=== PATIENT | male | born 1950 | race Caucasian/White ===

== ENCOUNTER 2016-07-06 08:46 | Emergency (ER) | payer MEDICARE, BC ==
[2016-07-06 09:15] VITALS: BP 143/72
--- NOTE | 2016-07-06 09:42 | UC ---
Respiratory Complaint HPI - HPI Summary HPI Summary: 66 yo male with a 3 week history of sinus pressure/pain/post nasal drip and non productive cough no relief with allergy meds no f/c no n/v/d - History of Current Complaint Chief Complaint: UCRespiratory Stated Complaint: COUGH,CONGESTION Time Seen by Provider: 07/06/16 09:31 Hx Obtained From: Patient Onset/Duration: Sudden Onset, Gradual Onset Timing: Constant Severity Initially: Mild Severity Currently: Moderate Pain Intensity: 4 Pain Scale Used: 0-10 Numeric Character: Cough: Nonproductive Associated Signs And Symptoms: Positive: Nasal Congestion, Sinus Discomfort Related History: Seasonal Allergies - Allergies/Home Medications Allergies/Adverse Reactions: Allergies Allergy/AdvReac Type Severity Reaction Status Date / Time No Known Allergies Allergy Verified 07/06/16 08:57 Home Medications: Home Medications [id number] [Vicks Nyquil Cold & Flu N 15-6.25-325 mg] 2 cap PO Q6H PRN 07/06/16 [History Confirmed 07/06/16] Diphenhydramine HCl 25 - 50 mg PO Q6H PRN 07/06/16 [History Confirmed 07/06/16] Finasteride (ALOPECIA) (NF) [Propecia (NF)] 1 mg PO DAILY 07/06/16 [History Confirmed 07/06/16] [id number] W/ APAP [Mucinex Fast-Max Severe C 0-87-516-325 mg] 2 tab PO Q4H PRN 07/06/16 [History Confirmed 07/06/16] PMH/Surg Hx/FS Hx/Imm Hx Previously Healthy: Yes Respiratory History Of: Reports: Pneumonia - x3 - Surgical History Surgical History: None - Family History Known Family History: Positive: Other - allergies run in the family Negative: Respiratory Disease - Social History Alcohol Use: Weekly Substance Use Type: None Smoking Status (MU): Never Smoked Tobacco - Immunization History Most Recent Influenza Vaccination: Not the 2015/2016 Season Most Recent Pneumonia Vaccination: 2016 Review of Systems Constitutional: Negative Skin: Negative Eyes: Negative ENT: Nasal Discharge Respiratory: Cough Cardiovascular: Negative Gastrointestinal: Negative Genitourinary: Negative Motor: Negative Neurovascular: Negative Musculoskeletal: Negative Neurological: Negative Psychological: Negative All Other Systems Reviewed And Are Negative: Yes Physical Exam Triage Information Reviewed: Yes Appearance: Well-Appearing, No Pain Distress, Well-Nourished Vital Signs: Initial Vital Signs Temp 98 F 07/06/16 08:51 Pulse 58 07/06/16 08:51 Resp 16 07/06/16 08:51 BP 143/72 07/06/16 08:51 Pulse Ox 100 07/06/16 08:51 Vital Signs Reviewed: Yes Eyes: Positive: Conjunctiva Clear ENT: Positive: Hearing grossly normal, Pharyngeal erythema, Nasal congestion, Nasal drainage, TMs normal, Other: - mild bilat max sinus tenderness. Negative : Trismus, Muffled/hoarse voice Dental: Negative: Dental Fracture @, Abscess @ Neck: Positive: Supple, Nontender, No Lymphadenopathy Respiratory: Positive: Lungs clear, Normal breath sounds, No respiratory distress, No accessory muscle use Cardiovascular: Positive: RRR, No Murmur. Negative: Tachycardia, Bradycardia Musculoskeletal: Positive: ROM Intact, No Edema Neurological: Positive: Alert Psychological Exam: Normal Skin Exam: Normal UC Diagnostic Evaluation - Laboratory O2 Sat by Pulse Oximetry: 100 - normal/not hypoxic Respiratory Course/Dx - Differential Dx/Diagnosis Provider Diagnoses: acute sinsusitis Discharge - Discharge Plan Condition: Stable Disposition: HOME Prescriptions: Cefuroxime Axetil [Ceftin 250 MG] 250 mg PO BID #20 tab Patient Education Materials: Sinusitis (ED) Referrals: SAMIA Garnica [Primary Care Provider] - 5 Days (if not better) Additional Instructions: saline nasal spray twice daily
== END 2016-07-06 09:49 | disposition home or self-care (01) ==
LOC: UCCORT 08:46
DX: J01.90 Acute sinusitis, unspecified (principal)
CPT/HCPCS: 99212; G0463

== ENCOUNTER 2017-03-20 17:09 | Emergency (ER) | payer MEDICARE, BC ==
[2017-03-20] MEDS ORDERED: Ondansetron ODT TAB* 4 MG PO ONE (19:37)
--- NOTE | 2017-03-20 19:43 | UC ---
Abdominal Pain Male HPI - HPI Summary HPI Summary: Mr. Barajas is a healthy 67 yo male presents to urgent care with his . Pt states at 11am was leaving to play tennis and felt "stomach ache" and nausea. Pt states took 2 tums. Pt was able to play full games x 2 hours. Pt states drank plenty of water during the game. Pt states after then game and while driving home started to have increased abdominal pain and bloating. Pt states had to loosen his pants and hold seatbelt second to discomfort. Pt states when he got home he had dry heaves and vomiting x 4. Pt states since this time continues to feel nauseous and has decreased appetite. Pt reports continues to have a belly ache but does not localized. Pt denies fever, chills, rash. Pt denies cp, sob. Pt denies sylvester, vision changes. No sick contact. Pt has never have stomach bug or similar sx. Pt denies back pain. No dysuria, hematuria. Pt states usually has 1 BM per day. Today has had 5 - progressively soft - no diarrhea. No blood, no black. - History of Current Complaint Chief Complaint: UCAbdominalPain Stated Complaint: stomach ache Time Seen by Provider: 03/20/17 18:59 Hx Obtained From: Patient, Family/Consumer Insight Analyst Onset/Duration: Gradual Onset Timing: Constant Pain Intensity: 5 Location: Diffuse Radiates: No Character: Aching Associated Signs And Symptoms: Positive: Decreased Appetite, Nausea, Vomiting. Negative: Cough, Chest Pain, Constipation, Blood in Stool, Urinary Symptoms, Diarrhea - Allergies/Home Medications Allergies/Adverse Reactions: Allergies Allergy/AdvReac Type Severity Reaction Status Date / Time No Known Allergies Allergy Verified 03/20/17 18:30 PMH/Surg Hx/FS Hx/Imm Hx Previously Healthy: Yes - Surgical History Surgical History: None - Family History Known Family History: Positive: Other - allergies run in the family Negative: Respiratory Disease - Social History Occupation: Retired Lives: With Family Alcohol Use: Weekly Substance Use Type: None Smoking Status (MU): Never Smoked Tobacco - Immunization History Most Recent Influenza Vaccination: Not the 2016/2016 Season Most Recent Pneumonia Vaccination: 2016 Review of Systems Constitutional: Fatigue, Other - decreased appetite Eyes: Blurred Vision ENT: Negative Respiratory: Negative Cardiovascular: Negative Gastrointestinal: Abdominal Pain, Vomiting, Nausea Genitourinary: Negative Motor: Negative Neurovascular: Negative Musculoskeletal: Negative Neurological: Negative Is Patient Immunocompromised?: Yes All Other Systems Reviewed And Are Negative: Yes Physical Exam Triage Information Reviewed: Yes Appearance: Other: - pallor, tired appearing Vital Signs: Initial Vital Signs Temp 98.9 F 03/20/17 18:24 Pulse 56 03/20/17 18:24 Resp 16 03/20/17 18:24 BP 163/90 03/20/17 18:24 Pulse Ox 100 03/20/17 18:24 Vital Signs Reviewed: Yes Eye Exam: Normal Eyes: Positive: Conjunctiva Clear ENT: Positive: Normal ENT inspection, Hearing grossly normal, Other: - mmpasty Dental Exam: Normal Neck exam: Normal Neck: Positive: Supple, Nontender, No Lymphadenopathy Respiratory Exam: Normal Respiratory: Positive: Chest non-tender, Lungs clear, Normal breath sounds, No respiratory distress, No accessory muscle use Cardiovascular Exam: Normal Cardiovascular: Positive: RRR, No Murmur, Pulses Normal Abdomen Description: Positive: Other: - soft, decreased BS diffuse discomfort no guarding, no rebound Bowel Sounds: Positive: Hypoactive Musculoskeletal Exam: Normal Neurological Exam: Normal Psychological Exam: Normal Skin Exam: Normal Abd Pain Male Course/Dx - Course Course Of Treatment: Pt presents with diffuse abdominal discomfort, nausea and vomiting since 11am today. Pt vomited multiple times at home and again in UC. Pt without fever, chills. no sick contact. urine with + glucose, no ketones. FSBG 155. Pt given zofran. Pt continues to have nausea. d/w pt and spouse - differential including appendicitis, gastroenteritis, colitis. d/w pt going home with Rx zofran vs ed eval for fever, increased pain. after discussion -pt and elected to go to ED - request Randal fonseca. gave report to Coretta Reeves NP ED - Differential Dx/Clinical Impression Provider Diagnoses: abdominal pain Discharge - Discharge Plan Condition: Stable Disposition: OTHER Discharge Disposition Comment: abdominal pain Patient Education Materials: Acute Abdominal Pain (ED) Referrals: SAMIA Garnica [Primary Care Provider] - Additional Instructions: The doctor that evaluated you today recommend you go to the emergency department for futher evaluation of your pain - this evaluation may include lab work and imaging, but will be dependent upon the provider that evaluates you. Go directly to the emergency department - call 911 if you have any questions or concerns
[2017-03-20 19:45] VITALS: BP 153/91
== END 2017-03-20 20:14 ==
LOC: UCCORT 17:09
DX: R10.9 Unspecified abdominal pain (principal)
CPT/HCPCS: 81003; 99212; A9270-GY; G0463

== ENCOUNTER 2018-11-21 07:49 | Emergency (ER) | payer MEDICARE, BC ==
[2018-11-21 08:12] VITALS: BP 117/76
--- NOTE | 2018-11-21 09:16 | UC ---
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 BELIEVES IT ATTACHED YESTERDAY MORNING WHILE HE WAS WEEDING IN THE YARD. STATES HE WAS ALSO WEEDING THE DAY BEFORE SO IT IS POSSIBLE IT ATTACHED AT THAT TIME. IS UNSURE OF LEVEL OF ENGORGEMENT HE DID NOT SEE THE TICK WHEN HIS REMOVED IT. - History of Current Complaint Chief Complaint: UCBiteInjury Time Seen by Provider: 11/21/18 08:29 Stated Complaint: TICK BITE Hx Obtained From: Patient Onset/Duration: Lasting Hours Skin Exposure Onset/Duration: Hours Ago Timing: Constant Onset Severity: Mild Current Severity: Mild Pain Intensity: 0 Pain Scale Used: 0-10 Numeric Character: Redness Aggravating Factor(s): Nothing Alleviating Factor(s): Nothing Associated Signs & Symptoms: Positive: Negative Related History: Insect Bite/Sting - Allergy/Home Medications Allergies/Adverse Reactions: Allergies Allergy/AdvReac Type Severity Reaction Status Date / Time No Known Allergies Allergy Verified 11/21/18 08:12 PMH/Surg Hx/FS Hx/Imm Hx Previously Healthy: Yes - Surgical History Surgical History: None - Family History Known Family History: Positive: Other - allergies run in the family Negative: Respiratory Disease - Social History Alcohol Use: Daily Substance Use Type: None Smoking Status (MU): Never Smoked Tobacco - Immunization History Most Recent Influenza Vaccination: Not the 2015/2016 Season Most Recent Pneumonia Vaccination: 2015 Review of Systems All Other Systems Reviewed And Are Negative: Yes Constitutional: Positive: Negative Skin: Positive: Other - TICK ATTACHMENT SITE LEFT LOW BACK Respiratory: Positive: Negative Cardiovascular: Positive: Negative Gastrointestinal: Positive: Negative Physical Exam Triage Information Reviewed: Yes Appearance: Well-Appearing, No Pain Distress, Well-Nourished Vital Signs: Initial Vital Signs Temp 97.5 F 11/21/18 08:07 Pulse 56 11/21/18 08:07 Resp 16 11/21/18 08:07 BP 117/76 11/21/18 08:07 Pulse Ox 100 11/21/18 08:07 Vital Signs Reviewed: Yes Eyes: Positive: Conjunctiva Clear ENT: Positive: Hearing grossly normal Neck: Positive: Supple Respiratory: Positive: No respiratory distress, No accessory muscle use Cardiovascular: Positive: Pulses Normal Abdomen Description: Positive: Soft Musculoskeletal: Positive: No Edema Neurological: Positive: Alert Psychological: Positive: Age Appropriate Behavior Skin: Positive: Other - TICK ATTACHMENT SITE LEFT LOWE BACK. PINPOINT SIZED RETAINED TICK PART WITH 5MM SURROUNDING ERYTHEMA, NOT TENDER. Course/Dx - Diagnoses Provider Diagnosis: Tick bite of lower back Discharge - Sign-Out/Discharge Documenting (check all that apply): Patient Departure All imaging exams completed and their final reports reviewed: No Studies - Discharge Plan Condition: Stable Disposition: HOME Prescriptions: Doxycycline Monohydrate 2 cap PO ONCE #2 cap Patient Education Materials: Tick Bite (ED) Referrals: Anna Arzola [Primary Care Provider] - If Needed Additional Instructions: You received a prescription for 200mg of doxycycline for prophylaxis against Lyme disease. The Infectious Disease Society of [place] (IDSA) does not generally recommend antimicrobial prophylaxis for prevention of Lyme disease after a recognized tick bite. However, in areas that are highly endemic for Lyme disease, a single dose of doxycycline may be offered to adult patients (200 mg) who are not and to children older than 8 years of age (4 mg/kg up to a maximum dose of 200 mg) when all of the following circumstances exist: CRITERIA FOR RECEIVING PROPHYLACTIC TREATMENT FOR LYME DISEASE 1) TICK ATTACHED FOR AT LEAST 36 HRS 2) TICK IS AN ADULT OR [place] DEER TICK 3) YOU LIVE IN AN AREA WHERE LYME DISEASE IS PREVALENT (i.e., [place], [place], [place], [place], [place] , [place], [place], [place], [place], [place], [place], [place], [place], [place]) 4) YOU HAVE NO CONTRAINDICATION TO THE MEDICATION (DOXYCYCLINE) 5) PROPHYLAXIS IS BEGUN WITHIN 72 HRS OF TICK REMOVAL YOUR CHANCES OF DEVELOPING LYME DISEASE FROM THIS TICK ARE EXTREMELY SMALL. HOWEVER, 1 TICK MEANS THERE MAY HAVE BEEN OTHER TICKS OF WHICH YOU WEREN'T AWARE. SO BE VIGILANT OF YOUR SYMPTOMS AND DON'T HESITATE TO GET SEEN AGAIN IF YOU DEVELOP UNEXPLAINED FEVER, HEADACHE, JOINT PAIN, BODY ACHES, RASH OR ANY OTHER CONCERNING SYMPTOMS. Antibiotic treatment following a tick bite is not recommended as a means to prevent anaplasmosis, babesiosis, ehrlichiosis, or [place] spotted fever. There is no evidence this practice is effective, and it may simply delay onset of disease. Instead, persons who experience a tick bite should be alert for symptoms suggestive of tickborne illness and consult a physician if fever, rash, headache or other symptoms of concern develop. - Billing Disposition and Condition Condition: STABLE Disposition: Home
== END 2018-11-21 09:18 | disposition home or self-care (01) ==
LOC: UCCORT 07:49
DX: S30.860A Insect bite (nonvenomous) of lower back and pelvis, initial encounter (principal); W57.XXXA Bitten or stung by nonvenomous insect and other nonvenomous arthropods, initial encounter
CPT/HCPCS: 99212; G0463